=== PATIENT | female | born 1935 | race Caucasian/White ===

== ENCOUNTER → 2016-10-17 | Day surgery (SDC) | payer OTHER ==
[~2016-10-17] MED LIST: ASPIRIN PO; ASPIRIN81 M2 PO; B COMPLEX1 CA1 PO; CALCIUM + D 6001 TA1 PO; CALCIUM 500 + D1 TAB PO; CALCIUM 600 +1 EAC5 PO; CERTAGEN PO; CITALOPRAM HBR40 MG PO; CLIMARA1 PATCH.WK TOP; DOK100 MG PO; EFFEXOR PO; FERROUS SULFATE PO; FISH OIL 1,0001 EACH; FLEXERIL10 MG PO; FLONASE16 GM; GABAPENTIN300 MG PO; GABAPENTIN600 MG PO; HEMP OIL PO; HYDROCODON-ACE1 EAC7 PO; KCL PO; LASIX20 MG PO; LYRICA PO; MEVACOR PO; MIRALAX119 GM PO; MIRALAX17 GM PO; NASCOBAL1 EACH PO; NASONEX17 GM; NORVASC PO; OMEPRAZOLE20 M1 PO; OMEPRAZOLE40 M1 PO; OXYCODONE-ACET1 EACH PO; PHENERGAN25 M1 PO; PROBIOTIC1 EAC3 PO; RESTORIL15 MG PO; SENNA S TABLET1 TAB PO; TOPAMAX PO; VAGIFEM25 MCG PO; VIT B-12 PO; VIT E PO; VITAMIN B12; VITAMIN C PO; ZOCOR PO; ZOLOFT50 MG PO; ZOLPIDEM TARTRAT5 MG PO; [UNRECOGNIZED DRUG - CODE]; [UNRECOGNIZED DRUG - OTHER] PO
--- NOTE | ~2016-10-17 | OR ---
Unit #: [id number] #: [id number] Patient: PACO NELSON [id number] [address] [place], [place] [address] [id number] O MR#: [id number] NAME: PACO NELSON. ROOM: Date of Procedure: 10/17/2016 Admission Date: 10/17/2016 Surgeon: Amadou Bueno M.D. : 1935 Attending Physician: Amadou Bueno M.D. Primary Care Physician: Chito De lValle Jr., M.D. OPERATIVE REPORT JOB NOTE: CC: [facility] PREOPERATIVE DIAGNOSES Back pain, radiculopathy, spinal stenosis, spondylolisthesis, degenerative disk disease. POSTOPERATIVE DIAGNOSES Back pain, radiculopathy, spinal stenosis, spondylolisthesis, degenerative disk disease. PROCEDURE PERFORMED Lumbar epidural steroid injection with intravenous sedation and fluoroscopic guidance for needle localization. INDICATIONS FOR PROCEDURE The patient is an 81-year-old female with worsening back and left lower extremity pain due to previously mentioned diagnosis. She has failed to settle with conservative measures. Epidural steroids have been done several years ago helped. Based on history, pathology, symptomatology, plan is for trial of epidural steroid injection. DESCRIPTION OF PROCEDURE The patient was placed in a seated position. Standard monitors were applied. 2 mg of Versed were given for sedation and anxiolysis, which were adequate. Vital signs remained stable. Sterile prep and drape then of lumbar area was performed. The skin then at the L4-L5 level was localized with 1% lidocaine. An 18-gauge Hustead needle was then advanced via loss of resistance technique and fluoroscopic guidance in toward the epidural space. After confirming proper positioning with fluoroscopy and radiographic contrast, 80 mg of Depo-Medrol and 4 mL of 0.125% bupivacaine were deposited. The patient tolerated the procedure otherwise well and was discharged to the recovery room in stable condition. Dictated by... Tiesha Peoples/roberto TD: 10/17/2016 17:58 JOB #: [id number] Unit #: [id number] #: [id number] Patient: PACO NELSON OPERATIVE REPORT Page 1 of 1 X Amadou Bueno MD X PROCEDURE OPERATIVE NOTE
== END | disposition home or self-care (01) ==
LOC: CCSC 10:47
DX: M51.16 Intervertebral disc disorders with radiculopathy, lumbar region (principal); M43.16 Spondylolisthesis, lumbar region; M48.06 Spinal stenosis, lumbar region; I10 Essential (primary) hypertension; K21.9 Gastro-esophageal reflux disease without esophagitis; Z88.2 Allergy status to sulfonamides; Z88.8 Allergy status to other drugs, medicaments and biological substances; Z79.82 Long term (current) use of aspirin; Z79.891 Long term (current) use of opiate analgesic; Z79.899 Other long term (current) drug therapy
CPT/HCPCS: J1040; J2250